=== PATIENT | male | born 1935 | race Caucasian/White ===

== ENCOUNTER 2021-07-31 01:09 | Emergency (ER) | payer OTHER, SELFPAY ==
[2021-07-31 01:19] VITALS: BP_SYST 126
[2021-07-31] MEDS ORDERED: ASPIRIN 81 MG TAB.CHEW PO ONE (01:45)
--- NOTE | 2021-07-31 02:10 | NUR ---
Initilal contact AAOx4 NAD noted. Arrived via stretcher with EMS from home. Pt c/o sternal CP 6/10 on 0-10 scale. Pt reported onset a few hours ago. Pt repoted increased pian with deep breathing. 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 V/s stable.
[2021-07-31 02:31] LABS: BASOPHILS # (AUTO) 0.1 K/uL (0.0-0.2); BASOPHILS % (AUTO) 0.6 % (0.0-2.0); EOSINOPHILS % (AUTO) 0.2 % (0.0-4.0); HEMATOCRIT 40.8 % (36-54); HEMOGLOBIN 13.7 g/dL (14.0-18.0); LYMPHOCYTES # (AUTO) 0.8 K/uL (1.0-5.5); LYMPHOCYTES % (AUTO) 5.8 % (20.5-51.5); MEAN CORPUSCULAR HEMOGLOBIN 31 pg (27-31); MEAN CORPUSCULAR HGB CONC 34 % (32-36); MEAN CORPUSCULAR VOLUME 91 fL (79.0-98.0); MONOCYTES # (AUTO) 0.1 K/uL (0.0-1.0); MONOCYTES % (AUTO) 1.1 % (1.7-9.3); NEUTROPHILS # (AUTO) 12.7 K/uL (1.8-7.7); NEUTROPHILS % (AUTO) 92.3 % (40.0-70.0); PLATELET COUNT (AUTO) 177 K/uL (130-430); RED BLOOD CELL COUNT(AUTO) 4.47 MIL/uL (4.2-6.2); RED CELL DISTRIBUTION WIDTH 13.4 % (9.0-15.0); WHITE BLOOD COUNT (AUTO) 13.8 K/uL (4.8-10.8)
[2021-07-31 02:42] LABS: ANION GAP 5 (5-15); CALCIUM 8.4 mg/dL (8.4-11.0); CHLORIDE 97 mmol/L (98-107); CREATININE 1.01 mg/dL (0.55-1.30); GLUCOSE 118 mg/dL (70-99); POTASSIUM 4.4 mmol/L (3.5-5.1); SODIUM SERUM 134 mmol/L (136-145); UREA NITROGEN, BLOOD 26 mg/dL (8-21)
[2021-07-31 03:11] LABS: ALANINE AMINOTRANSFERASE 29 U/L (12-78); ALBUMIN 3.6 g/dL (3.4-4.8); ASPARTATE AMINOTRANSFERASE 22 U/L (10-37); TOTAL BILIRUBIN 0.9 mg/dL (0.0-1.0)
--- NOTE | 2021-07-31 05:16 | NUR ---
AAOX4 NAD NOTED. VITAL SIGNS STABLE PER BEDSIDE MONITOR. ATTEMPTED TO OBTAIN CONSENT FOR CTA. PT REQUESTED TO GIVE HIM A FEW MINUTES TO CALL HIS . PT UNSURE IF HE WANTS THE CTA AT THIS TIME.
--- NOTE | 2021-07-31 05:44 | NUR ---
Obtained consent for CTA. Consent form placed on chart. Attempted to notify radiology. No answer.
[2021-07-31 06:48] LABS: BILIRUBIN,URINE NEGATIVE (NEGATIVE); BLOOD, URINE NEGATIVE (NEGATIVE); CLARITY/URINE CLEAR (CLEAR); COLOR,URINE YELLOW (YELLOW); GLUCOSE,URINE NEGATIVE (NEGATIVE); KETONES,URINE NEGATIVE (NEGATIVE); LEUKOCYTE ESTERASE ,URINE NEGATIVE (NEGATIVE); NITRITE, URINE NEGATIVE (NEGATIVE); PH,URINE 6.5 (5.0-8.0); PROTEIN URINE NEGATIVE (NEGATIVE)
--- NOTE | 2021-07-31 07:25 | NUR ---
RECEIVED PT ALERT ORIENTED. RN DID AN REPEAT EKG GAVE TO ME. SR. PT MAY BE DC HOME SOON.
[2021-07-31] MEDS ORDERED: HYDR-3917 PO (07:46)
[2021-07-31] MEDS ORDERED: LEVO500T90 PO (07:46)
--- NOTE | 2021-07-31 08:19 | NUR ---
PT IS BEING DC HOME, 2ND TROPONIN DRAWN.
[2021-07-31 08:20] VITALS: BP_SYST 116
--- NOTE | 2021-07-31 08:22 | NUR ---
Patient given written and verbal discharge instructions and verbalizes understanding. ER MD discussed with patient the results and treatment provided. Patient in stable condition. ID arm band removed. IV catheter removed intact and dressing applied, no active bleeding. Rx of LEVOFLAXIN given. Patient educated on pain management and to follow up with PMD. Pain Scale 0/10. Opportunity for questions provided and answered. Medication side effect fact sheet provided.
== END 2021-07-31 08:22 | disposition home or self-care (01) ==
LOC: SED 01:09
DX: J18.9 Pneumonia, unspecified organism (principal); R07.89 Other chest pain; Z20.822 Contact with and (suspected) exposure to COVID-19
CPT/HCPCS: 36415; 71045; 71275; 76376; 80053; 81003; 83880; 84484; 85025; 85379; 93005; 99285